=== PATIENT | male | born 1995 | race Caucasian/White ===

== ENCOUNTER 2024-11-19 16:51 | Emergency (ER) | payer OTHER ==
[~2024-11-19] VITALS: Ht 175.3 cm; Wt 88.8 kg
[2024-11-19] MEDS ORDERED: IBUP200C28 PO (16:56)
[2024-11-19] MEDS ORDERED: NAPR-837 PO (19:53)
[2024-11-19 20:06] VITALS: BP 116/76; TEMP 98.2; O2SAT 98
== END 2024-11-19 20:13 | disposition home or self-care (01) ==
LOC: M ED 16:51
DX: M22.2X1 Patellofemoral disorders, right knee (principal); M22.2X2 Patellofemoral disorders, left knee

== ENCOUNTER 2024-12-25 10:00 | Emergency (ER) | payer OTHER ==
[~2024-12-25] VITALS: Ht 175.3 cm; Wt 92.6 kg
[~2024-12-25 10:00] MED LIST: IBUP200C28 PO; NAPR-837 PO
[2024-12-25 11:02] LABS: BASO # 0.1 10^3/uL (0.0-0.2); BASO % 0.9 % (0.0-1.0); EOS # 0.2 10^3/uL (0.0-0.5); EOS % 2.5 % (0.0-3.0); LYMPH # 2.5 10^3/uL (1.5-5.0); LYMPH % 31.0 % (24.0-44.0); MONO # 0.6 10^3/uL (0.0-0.8); MONO % 7.9 % (2.0-8.0); NEUTROPHILS # 4.6 10^3/uL (1.5-8.5); NEUTROPHILS % 56.7 % (36.0-66.0); PLATELET COUNT, AUTOMATED 272 10^3/uL (150-450)
[2024-12-25 11:25] LABS: ALT/SGPT 42 U/L (7.0-40); AST/SGOT 29 U/L (<34); CALCIUM LEVEL 9.7 MG/DL (8.5-10.1); CARBON DIOXIDE LEVEL 30 MMOL/L (20-31); CHLORIDE LEVEL 102 MMOL/L (98-107); CREATININE FOR GFR 0.88 MG/DL (0.70-1.30); GLOMERULAR FILTRATION RATE > 90.0 (>60); POTASSIUM SERUM 4.6 MMOL/L (3.5-5.1); SODIUM LEVEL 140 MMOL/L (136-145)
[2024-12-25] MEDS ORDERED: ONDA-282 PO (13:20)
[2024-12-25] MEDS ORDERED: MECL-209 PO (13:20)
[2024-12-25 13:30] VITALS: BP 124/71; TEMP 99.3; O2SAT 100
== END 2024-12-25 13:47 | disposition home or self-care (01) ==
LOC: M ED 10:00
DX: H91.13 Presbycusis, bilateral (principal); Z79.899 Other long term (current) drug therapy